=== PATIENT | female | born 1955 | race African-American/Black ===

== ENCOUNTER → 2018-09-16 | Outpatient (CLI) | payer BC ==
[~2018-09-16] MED LIST: ACCUNEB SO1.25 MG/1 INH; AMARYL4 MG PO; ATIVAN1 MG PO; CARVEDILOL25 MG PO; CLARITIN10 MG PO; HYDROXYCHLOROQ200 M1 PO; JANUMET XR 50-1 EAC1 PO; LANTUS100 UNIT/M SUBQ; LOSARTAN-HCTZ1 EAC2 PO; NAPROSYN375 MG PO; PREMARIN VAGI42.5 G1 TOP; SORINE 80 MG TA80 M1 PO; TYLENOL325 MG PO; VENTOLIN HFA 1818 GM INH; XARELTO10 MG PO; ZEGERID 20 MG1 EACH PO; ZOCOR40 MG PO
== END ==
LOC: BC 10:49
DX: Z12.31 Encounter for screening mammogram for malignant neoplasm of breast (principal)

== ENCOUNTER → 2018-09-28 | Outpatient (CLI) | payer BC | LOC: ULTRA 04:03 | DX: N63.41 Unspecified lump in right breast, subareolar (principal); R92.1 Mammographic calcification found on diagnostic imaging of breast ==

== ENCOUNTER 2018-11-25 09:28 | Inpatient (IN) | payer BC ==
[~2018-11-25] VITALS: Ht 160 cm; Wt 98.4 kg
[~2018-11-25 09:28] MED LIST changes: -PREMARIN VAGI42.5 G1 TOP; +PREMARIN30 GM VAG; -SORINE 80 MG TA80 M1 PO; +SOTALOL 120 MG120 M1 PO
[2018-11-25 09:29] VITALS: BP 174/86
[2018-11-25] MEDS ORDERED: METHOTREXATE 22.5 M1 PO (09:47)
[2018-11-25 10:06] LABS: URINE BLOOD NEGATIVE (Negative); URINE COLOR YELLOW; URINE GLUCOSE-RANDOM* NEGATIVE (Negative); URINE LEUKOCYTES-REFLEX TRACE (Negative); URINE NITRITE-REFLEX NEGATIVE (Negative)
[2018-11-25 10:09] LABS: BASOPHILS 0.8 % (0.0-2.0); EOSINOPHILS 3.1 % (0.0-3.0); HEMATOCRIT 37.4 % (37.0-47.0); HEMOGLOBIN 12.5 gm/dL (12.0-15.0); LYMPHOCYTES 16.8 % (24.0-44.0); MCH 26.8 pg (26.0-34.0); MCHC 33.4 g/dL (28.0-37.0); MCV 80.4 fL (80.0-100.0); MONOCYTES 3.3 % (1.0-8.0); PLATELET COUNT 304 thou/uL (150-400); RBC 4.65 mil/uL (4.20-5.00); RDW 13.7 % (10.5-14.5); WBC 7.8 thou/uL (4.0-11.0)
[2018-11-25 10:09] LABS: ICTOTEST (BILI CONFIRMATORY) Negative (Negative); URINE BILIRUBIN NEGATIVE (Negative)
[2018-11-25 10:13] LABS: URINE CLARITY CLEAR; URINE KETONES NEGATIVE (Negative); URINE PROTEIN (DIPSTICK) NEGATIVE (Negative); URINE SPECIFIC GRAVITY 1.015 (1.005-1.035); URINE UROBILINOGEN 0.2 E.U./dl (0.2-1.0)
[2018-11-25 10:20] LABS: CALCIUM 9.8 mg/dL (8.5-10.1); CREATININE 1.5 mg/dL (0.6-1.0); POTASSIUM 4.1 mmol/L (3.5-5.1)
[2018-11-25 10:22] LABS: AMP/METHAMP Negative (Negative); BARBITURATES Negative (Negative); BENZODIAZEPINES Negative (Negative); COCAINE Negative (Negative); METHADONE Negative (Negative); OPIATES Negative (Negative); PCP Negative (Negative)
[2018-11-25 10:23] LABS: APTT 29.4 Seconds (24.5-32.8); INR 1.1; PROTIME 11.8 Seconds (9.3-11.4)
[2018-11-25 10:30] LABS: ALBUMIN 3.4 g/dL (3.4-5.0); MAGNESIUM 1.8 mg/dL (1.8-2.4); TOTAL BILIRUBIN 0.9 mg/dL (<0.1-1.0); TOTAL PROTEIN 7.4 g/dL (6.4-8.2); TROPONIN-I 0.09 ng/mL (<0.06)
[2018-11-25 12:15] VITALS: BP 136/93
--- NOTE | 2018-11-25 13:25 | EKG ---
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1955 Requested By: Jer Yoo Order Number: [id number] MD: Elvin Jenkins Measurements Intervals [place] Rate: 61 P: 49 OR: 170 QRS: -50 QRSD: 92 T: 0 QT: 476 QTc: 480 Interpretive Statements Sinus rhythm Ventricular premature complex Inferior infarct, old Poor R wave progression Compared to ECG 05/17/2015 08:05:48 Ventricular premature complex(es) now present Electronically Signed On 11-25-2018 13:25:13 CDT by Elvin Jenkins [email or web address] <ELECTRONICALLY SIGNED> By: Elvin Jenkins MD, [facility] 11/25/18 1325 0936 0936 Elvin Jenkins MD, [facility] /EPI
[2018-11-25 13:33] VITALS: BP 138/81
[2018-11-25 19:55] VITALS: BP 129/68
[2018-11-26 00:08] VITALS: BP 104/69
--- NOTE | 2018-11-26 01:33 | NUR ---
ASSESSMENTS CHARTED. NIH SCORE IS 0. STRENGTH IS EQUAL IN BOTH ARMS AND HANDS. PT UP AT [facility]BER IN ROOM. MRI'S SCHEDULED FOR TODAY.
[2018-11-26 02:06] LABS: GLYCOHEMOGLOBIN (HGB A1C) 11.2 % (4.8-5.6)
[2018-11-26 04:08] VITALS: BP 105/57
[2018-11-26 05:51] LABS: CHOLESTEROL 142 mg/dL (<200); HDL CHOLESTEROL 38 mg/dL (>40); LDL CHOLESTEROL 80 mg/dL (<100); TC:HDL 3.7 Ratio (Not establshd); TRIGLYCERIDE 123 mg/dL (<150); VLDL 25 mg/dL (<40)
[2018-11-26 05:55] LABS: SERUM ASSESSMENT Clear
[2018-11-26 08:19] VITALS: BP 134/83
--- NOTE | 2018-11-26 10:43 | HC ---
[facility] [place] [address] CONSULTATION Name: TAE MCDERMOTT Room #: 218-P ADM IN M.R.#: [id number] Admission: 11/25/18 Attend Phys: Erik Ashby MD Discharge: Date of : 59 Report #: [id number] THIS REPORT FOR: //name// CC: Erik Diamond DATE OF SERVICE: 11/25/2018 HISTORY OF PRESENT ILLNESS: This is a 62-year-old female patient who was admitted with weakness on the left side. This happened 2 days ago. It is numbness as well as weakness. She indicated that she has atrial fibrillation. She was on anticoagulation, but she did not take the anticoagulation few days prior to admission. She has slightly improved since this happened and she has been started back on Xarelto. REVIEW OF SYSTEMS: Indicates she has a history of diabetes. CT scan has indicated strokes, but she is unaware of it. She does have a history of hypertension, high cholesterol, cardioversion. This was her relevant 14-point review of system. PAST MEDICAL HISTORY: According to her is negative for any stroke. FAMILY HISTORY: Unremarkable. SOCIAL HISTORY: The patient is and the was there with the patient. She denies the use of tobacco. PHYSICAL EXAMINATION: Indicates she is alert. She is responsive. She can follow simple commands. Her speech, concentration, fund of knowledge and memory is at her baseline. Cranial nerve examination 2-12 looks mostly unremarkable. She has diminished strength on the left side. I could not look at the fundus. Rest of the exam is unremarkable. She has a history of atrial fibrillation. She does not have any respiratory difficulty or rhonchi on both sides. Blood pressure is 129/68, pulse is 64 and temperature is 97.8. LABORATORY DATA: Indicated normal white count. Her head CT scan does demonstrate chronic infarct. She clinically denies any infarct. IMPRESSION: The patient's clinical presentation is consistent with another cerebrovascular accident. I ordered an MRI and MRA in this patient. She was noncompliant with Xarelto. I discussed the consequences of that and I think she has realized that. We will see MRI and then decide about the further management in this patient. [facility] [address] [place] [address] CONSULTATION Name: TAE MCDERMOTT Room #: 218-P ADM IN M.R.#: [id number] Admission: 11/25/18 Attend Phys: Erik Ashby MD Discharge: Date of : 59 Report #: [id number] Thank you very much for this referral and if you have any question, please feel free to contact me. <ELECTRONICALLY SIGNED> By: José Luis Escobar MD 11/26/18 1043 2043 0045 José Luis Escobar MD /nt
[2018-11-26 11:36] VITALS: BP 136/97
[2018-11-26] MEDS ORDERED: FOLIC ACID1 MG PO (12:50)
--- NOTE | 2018-11-26 13:49 | NUR ---
ASSUMED CARE AT 0700, SHIFT ASSESSMENT DONE, MEDS GIVEN, VSS. DENIES NAUSEA, VOMITING, PAIN. LEFT ARM STILL NUMB, NIG SCORE IS 0. WORKED WITH PHYSCIAL AND OCCUPATIONAL THERAPHY. ECHO ORDERED FOR TODAY. IV FLUIDS DISCONTINUED. WILL CONTINUE TO ASSESS AND ASSIST WITH ADLs NEEDED.
--- NOTE | 2018-11-26 15:49 | 2DMMODE ---
[facility] [address] [address] 2 D/M-MODE ECHOCARDIOGRAM Name: TAE MCDERMOTT Room #: 218-P ADM IN M.R.#: [id number] Admission: 11/25/18 Attend Phys: Erik sAhby MD Discharge: Date of : 59 Date of Service: 11/26/18 1549 Report #: [id number] THIS REPORT FOR: //name// APPROVED REPORT Study performed: 11/26/2018 14:23:37 EXAM: Comprehensive 2D, Doppler, and color-flow Echocardiogram Patient Location: Echo lab Room #: 218 Status: routine BSA: 2.00 HR: 73 bpm BP: 136/97 mmHg Rhythm: NSR, Irregular Other Information Study Quality: Good Indications CVA/TIA Diabetes Atrial Fibrillation Hypertension/HDD Echo Enhancing Agent Indication: Rule out Shunt Agent(s) / Amount(s) Used: Agitated Saline 7 cc 2D Dimensions RVDd: 29.36 mm IVSd: 7.79 (7-11mm) LVOT Diam: 18.22 (18-24mm) LVDd: 41.43 mm PWd: 9.42 (7-11mm) Ascending Ao: 37.91 (22-36mm) LVDs: 30.75 (25-40mm) Aortic Root: 28.40 mm IVC: 19.00 mm Volumes Left Atrial Volume (Systole) Single Plane 4CH: 58.37 mL Single Plane 2CH: 53.90 mL LA ESV Index: 30.00 mL/m2 Aortic Valve AoV Peak Ishmael.: 1.42 m/s AO Peak Gr.: 8.08 mmHg LVOT Max P.11 mmHg [facility] [address] [place] [address] 2 D/M-MODE ECHOCARDIOGRAM Name: BALDEMARITALIABert STUARTAN Room #: 218-P [facility] [place] ..#: [id number] Admission: 11/25/18 Attend Phys: Erik Ashby MD Discharge: Date of : 59 Date of Service: 11/26/18 1549 Report #: [id number] LVOT Max V: 1.01 m/s ELVIA Vmax: 1.86 cm2 Mitral Valve E/A Ratio: 2.4 MV Decel. Time: 206.09 ms MV E Max Ishmael.: 1.18 m/s MV A Ishmael.: 0.50 m/s MV PHT: 59.77 ms IVRT: 50.75 ms Pulmonary Valve PV Peak Ishmael.: 0.93 m/s PV Peak Gr.: 3.47 mmHg Pulmonary Vein P Vein S: 0.90 m/s P Vein A: 0.25 m/s P Vein D: 0.34 m/s P Vein A Dur.: 78.4 msec P Vein S/D Ratio: 2.65 Tricuspid Valve TR Peak Ishmael.: 3.44 m/s TR Peak Gr.: 47.41 mmHg PA Pressure: 5.00 mmHg Left Ventricle The left ventricle is normal size. There is normal left ventricular wall thickness. The left ventricular systolic function is normal. The left ventricular ejection fraction is within the normal range. LVEF is 55%. The left ventricular diastolic function is normal. Right Ventricle The right ventricle is normal size. The right ventricular systolic function is normal. Atria The left atrium size is normal. Interatrial septum is intact without evidence of ASD or PFO. Right atrium is dilated. Aortic Valve The aortic valve is normal in structure. No aortic regurgitation is present. There is no aortic valvular stenosis. Mitral Valve The mitral valve is normal in structure. Moderate mitral regurgitation. No evidence of mitral valve stenosis. [facility] [address] [place] [address] 2 D/M-MODE ECHOCARDIOGRAM Name: TAE MCDERMOTT Room #: 218-P [facility] [place] [facility]#: [id number] Admission: 11/25/18 Attend Phys: Erik Ashby MD Discharge: Date of : 59 Date of Service: 11/26/18 1549 Report #: [id number] Tricuspid Valve The tricuspid valve is normal in structure. Moderate to severe tricuspid regurgitation. Estimated PAP is 52mmHg. Pulmonic Valve Pulmonic valve is not well visualized. Trace pulmonic regurgitation. Great Vessels The aortic root is normal in size. IVC is normal in size and collapses >50% with inspiration. Pericardium There is no pericardial effusion. <Conclusion> The left ventricle is normal size. LVEF is 55%. Right atrium is dilated. Interatrial septum is intact without evidence of ASD or PFO. The aortic valve is normal in structure. The mitral valve is normal in structure. Moderate mitral regurgitation. The tricuspid valve is normal in structure. Moderate to severe tricuspid regurgitation. Estimated PAP is 52mmHg. Pulmonic valve is not well visualized. Trace pulmonic regurgitation. There is no pericardial effusion. <ELECTRONICALLY SIGNED> By: Boyd Oneal MD 11/26/18 1549 1549 1549 Boyd Oneal MD /INF
--- NOTE | 2018-11-26 17:49 | NUR ---
Chart reviewed. PT/OT/ST and 5N eval pending. Awaiting rehab recommendations. Will follow for possible hh or rehab referrals.
--- NOTE | 2018-11-27 05:24 | NUR ---
ASSUMED PT CARE AT 1900. REPORT TAKEN. FAMILY AT BEDSIDE. NO SIGN OF DISTRESS NOTED IN PT. PT IS ALERT AND ORIENTED. PT IS STABLE. ASSESSMENT COMPLETED AND CHARTED. VITAL SIGNS STABLE. SCHEDULED MEDS ADMINISTERED TO PT. PT TOLERATED PO INAKE. NO SIGN OF DISTRESS NOTED. DENIES ANY NEEDS AT THIS TIME.
[2018-11-27 05:52] LABS: CREATININE 1.2 mg/dL (0.6-1.0); POTASSIUM 3.7 mmol/L (3.5-5.1)
[2018-11-27 08:00] VITALS: BP 153/69
--- NOTE | 2018-11-27 09:52 | NUR ---
ASSUMED CARE AT 0700, SHIFT ASSESSMENT DONE, MEDS GIVEN, VSS. DENIES PAIN, NAUSEA, VOMITING. MRI OF CERVICAL SPINE ORDERED, LEFT FOR MRI THIS AM. ROOM AIR. CONVERTED TO AFIB ON TELE, HAS HISTORY OF AFIB. POSSIBLE DISCHARGE TODAY. WILL CONTINUE TO ASSESS AND ASSIST WITH ADLs NEEDED.
[2018-11-27] MEDS ORDERED: COLACE 100 MG100 MG PO (12:14)
[2018-11-27] MEDS ORDERED: XARELTO15 MG PO (12:14)
[2018-11-27] MEDS ORDERED: SORINE 80 MG TA80 M1 PO (12:14)
[2018-11-27] MEDS ORDERED: ROBAXIN 750 MG750 MG PO (12:14)
[2018-11-27] MEDS ORDERED: MEDROLDOSEPACK PO (12:14)
[2018-11-27 12:18] VITALS: BP 132/91
--- NOTE | 2018-11-27 14:02 | NUR ---
DC ORDER RECEIVED, PERIPHERAL IV WAS TAKEN OUT. DISCHARGE PAPER WORK GIVEN. SCHEDULED TO LEAVE AT 1500
[2018-11-27 14:44] VITALS: BP 132/91
--- NOTE | 2018-11-27 14:59 | NUR ---
Pt cleared for dc home today. No hh or rehab referrals indicated. pt may f/u with outpt OT. case closed.
== END 2018-11-27 15:48 | disposition home or self-care (01) | DRG 64 ==
LOC: ER 09:28 → EROBS 12:04 → 2N 12:04 → ENTRNSPT 11-27 15:08 → EDTRNSPTSTS 11-27 15:10 → 2N 11-27 15:48
PROVIDERS: Emergency Medicine; Nurse Practitioner; ADMIT Internal Medicine
DX: I63.9 Cerebral infarction, unspecified (principal); N17.0 Acute kidney failure with tubular necrosis; E78.00 Pure hypercholesterolemia, unspecified; E11.65 Type 2 diabetes mellitus with hyperglycemia; E78.5 Hyperlipidemia, unspecified; E66.9 Obesity, unspecified; E11.22 Type 2 diabetes mellitus with diabetic chronic kidney disease; I48.2 Chronic atrial fibrillation; I12.9 Hypertensive chronic kidney disease with stage 1 through stage 4 chronic kidney disease, or unspecified chronic kidney disease; R41.89 Other symptoms and signs involving cognitive functions and awareness; M48.02 Spinal stenosis, cervical region; N18.9 Chronic kidney disease, unspecified; Z88.8 Allergy status to other drugs, medicaments and biological substances; Z68.38 Body mass index [BMI] 38.0-38.9, adult
CPT/HCPCS: 10081; 10194

== ENCOUNTER → 2019-06-11 | Outpatient (CLI) | payer BC ==
[~2019-06-11] MED LIST changes: +ADVIL200 M1 PO; +COLACE 100 MG100 MG PO; +FOLIC ACID1 MG PO; +MEDROLDOSEPACK PO; +METHOTREXATE 22.5 M1 PO; +ROBAXIN 750 MG750 MG PO; +SORINE 80 MG TA80 M1 PO; +XARELTO15 MG PO
== END ==
LOC: BC 08:50
DX: N63.10 Unspecified lump in the right breast, unspecified quadrant (principal); R92.2 Inconclusive mammogram

== ENCOUNTER 2019-06-12 06:01 | Emergency (ER) | payer BC ==
[~2019-06-12] VITALS: Ht 160 cm; Wt 93.0 kg
[~2019-06-12 06:01] MED LIST changes: -ADVIL200 M1 PO
[2019-06-12] MEDS ORDERED: ADVIL200 M1 PO (06:11)
[2019-06-12 07:29] VITALS: BP 172/76
== END 2019-06-12 07:30 | disposition home or self-care (01) ==
LOC: ER 06:01
DX: K06.8 Other specified disorders of gingiva and edentulous alveolar ridge (principal); E11.9 Type 2 diabetes mellitus without complications; I10 Essential (primary) hypertension; I48.91 Unspecified atrial fibrillation; E78.00 Pure hypercholesterolemia, unspecified; Z79.4 Long term (current) use of insulin; Z79.899 Other long term (current) drug therapy; Z98.818 Other dental procedure status

== ENCOUNTER → 2019-07-15 | Outpatient (CLI) | payer BC ==
[~2019-07-15] MED LIST changes: +ADVIL200 M1 PO; +EPIPEN 2-P0.3 MG/0.3 IM; +PREDNISONE 20 M20 MG PO
== END ==
LOC: ULTRA 14:15
DX: R10.13 Epigastric pain (principal); R10.9 Unspecified abdominal pain

== ENCOUNTER → 2019-07-16 | Outpatient (CLI) | payer BC ==
[2019-07-16 12:54] LABS: CALCIUM 9.7 mg/dL (8.5-10.1); CREATININE 1.3 mg/dL (0.6-1.0); POTASSIUM 3.7 mmol/L (3.5-5.1)
== END ==
LOC: CAT 11:08
PROVIDERS: Family Medicine
DX: K85.90 Acute pancreatitis without necrosis or infection, unspecified (principal)

== ENCOUNTER 2019-07-23 04:38 | Emergency (ER) | payer BC ==
[~2019-07-23] VITALS: Ht 160 cm; Wt 94.3 kg
[~2019-07-23 04:38] MED LIST changes: -EPIPEN 2-P0.3 MG/0.3 IM; -PREDNISONE 20 M20 MG PO
[2019-07-23] MEDS ORDERED: PREDNISONE 20 M20 MG PO (05:06)
[2019-07-23] MEDS ORDERED: EPIPEN 2-P0.3 MG/0.3 IM (05:06)
[2019-07-23 07:43] VITALS: BP 128/87
== END 2019-07-23 07:40 | disposition home or self-care (01) ==
LOC: ER 04:38
DX: T78.3XXA Angioneurotic edema, initial encounter (principal); E11.9 Type 2 diabetes mellitus without complications; I48.91 Unspecified atrial fibrillation; I10 Essential (primary) hypertension; E78.00 Pure hypercholesterolemia, unspecified; Z79.4 Long term (current) use of insulin; Z79.899 Other long term (current) drug therapy; Z88.1 Allergy status to other antibiotic agents; Z88.8 Allergy status to other drugs, medicaments and biological substances; Z88.6 Allergy status to analgesic agent; Y92.89 Other specified places as the place of occurrence of the external cause

== ENCOUNTER → 2020-05-04 | Outpatient (CLI) | payer BC ==
[~2020-05-04] MED LIST changes: +EPIPEN 2-P0.3 MG/0.3 IM; +PREDNISONE 20 M20 MG PO
== END ==
LOC: LAB 12:11
PROVIDERS: ATTEND Family Medicine
DX: Z20.822 Contact with and (suspected) exposure to COVID-19 (principal)

== ENCOUNTER 2020-12-28 14:23 | Emergency (ER) | payer BC ==
[~2020-12-28] VITALS: Ht 160 cm; Wt 94.3 kg
[2020-12-28 17:29] VITALS: BP 156/87
== END 2020-12-28 17:35 | disposition home or self-care (01) ==
LOC: ER 14:23
DX: I73.9 Peripheral vascular disease, unspecified (principal); E11.9 Type 2 diabetes mellitus without complications; I10 Essential (primary) hypertension; I48.91 Unspecified atrial fibrillation; E78.00 Pure hypercholesterolemia, unspecified; Z79.01 Long term (current) use of anticoagulants; Z88.1 Allergy status to other antibiotic agents; Z88.2 Allergy status to sulfonamides; Z88.8 Allergy status to other drugs, medicaments and biological substances

== ENCOUNTER 2021-01-15 01:42 | Emergency (ER) | payer BC ==
[~2021-01-15] VITALS: Ht 160 cm; Wt 94.8 kg
[2021-01-15] MEDS ORDERED: CARVEDILOL6.25 M1 PO (01:56)
[2021-01-15] MEDS ORDERED: LIPITOR 40 MG T40 M1 PO (01:56)
[2021-01-15] MEDS ORDERED: ROXICODONE5 MG PO (01:57)
[2021-01-15] MEDS ORDERED: K2-D3 10,000 U1 EACH PO (01:58)
[2021-01-15] MEDS ORDERED: FLEXERIL PO (02:00)
[2021-01-15] MEDS ORDERED: HYDRALAZINE 5050 MG PO (02:00)
[2021-01-15] MEDS ORDERED: HUMALOG KW100 UNIT/1 SUBQ (02:01)
[2021-01-15] MEDS ORDERED: JANUMET 50-1,01 EACH PO (02:01)
[2021-01-15] MEDS ORDERED: ARAVA10 MG PO (02:03)
[2021-01-15] MEDS ORDERED: LOSARTAN-HCTZ1 EAC3 PO (02:03)
[2021-01-15] MEDS ORDERED: LANTUS SOL100 UNIT/1 SUBQ (02:03)
[2021-01-15] MEDS ORDERED: XARELTO20 MG PO (02:04)
[2021-01-15] MEDS ORDERED: SOTALOL240 MG PO (02:04)
[2021-01-15 02:40] LABS: ABSOLUTE NEUTROPHILS 8.9 thou/uL (1.4-8.2); BASOPHILS 0.5 % (0.0-2.0); EOSINOPHILS 0.9 % (0.0-3.0); HEMATOCRIT 40.2 % (37.0-47.0); HEMOGLOBIN 13.3 gm/dL (12.0-15.0); LYMPHOCYTES 8.2 % (24.0-44.0); MCH 26.6 pg (26.0-34.0); MCV 80.7 fL (80.0-100.0); MONOCYTES 10.3 % (1.0-8.0); PLATELET COUNT 346 thou/uL (150-400); POLYS 80.1 % (36.0-66.0); RBC 4.98 mil/uL (4.20-5.00); RDW 15.1 % (10.5-14.5); WBC 11.1 thou/uL (4.0-11.0)
[2021-01-15 02:42] LABS: CREATININE 1.7 mg/dL (0.6-1.0); POTASSIUM 4.6 mmol/L (3.5-5.1)
--- NOTE | 2021-01-15 07:20 | EKG ---
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1955 Requested By: Jose Garzon Order Number: [id number] MD: Joni Zavala Measurements Intervals [place] Rate: 127 P: MD: QRS: -41 QRSD: 80 T: 67 QT: 321 QTc: 467 Interpretive Statements Atrial fibrillation Consider left ventricular hypertrophy Inferior infarct, old Anterior Q waves, possibly due to LVH Compared to ECG 11/25/2018 09:36:39 Left ventricular hypertrophy now present Q waves now present Sinus rhythm no longer present Ventricular premature complex(es) no longer present Poor R-wave progression no longer present Myocardial infarct finding still present Electronically Signed On 01-15-2021 7:20:36 CDT by Joni Zavala [email or web address] <ELECTRONICALLY SIGNED> By: Joni Zavala MD, FACC 01/15/21719 9 9 Joni Zavala MD, [facility] /EPI
[2021-01-15 08:08] VITALS: BP 158/94
== END 2021-01-15 08:13 | disposition short-term general hospital (02) ==
LOC: ER 01:42
PROVIDERS: Student in an Organized Health Care Education/Training Program
DX: U07.1 COVID-19 (principal); M79.672 Pain in left foot; I96 Gangrene, not elsewhere classified; I48.91 Unspecified atrial fibrillation; E11.9 Type 2 diabetes mellitus without complications; I10 Essential (primary) hypertension; E78.00 Pure hypercholesterolemia, unspecified; Z98.890 Other specified postprocedural states; Z79.899 Other long term (current) drug therapy; Z79.4 Long term (current) use of insulin; Z79.1 Long term (current) use of non-steroidal anti-inflammatories (NSAID); Z79.891 Long term (current) use of opiate analgesic; Z88.6 Allergy status to analgesic agent; Z88.1 Allergy status to other antibiotic agents; Z88.5 Allergy status to narcotic agent; Z88.2 Allergy status to sulfonamides; Z88.8 Allergy status to other drugs, medicaments and biological substances